=== PATIENT | female | born 1965 ===

== ENCOUNTER 2020-05-28 09:12 | Emergency (ER) | payer OTHER ==
[~2020-05-28] VITALS: Ht 160 cm; Wt 63.5 kg
[2020-05-28] MEDS ORDERED: LEVO-T88 MCG (09:33)
[2020-05-28] MEDS ORDERED: NORFLEX100MG PO (13:44)
[2020-05-28] MEDS ORDERED: KETO10TA2 PO (13:44)
== END 2020-05-28 13:56 | disposition home or self-care (01) ==
LOC: ER 09:12
DX: M54.2 Cervicalgia (principal); M54.5 Low back pain; V49.88XA Car occupant (driver) (passenger) injured in other specified transport accidents, initial encounter; Y93.89 Activity, other specified; Y92.488 Other paved roadways as the place of occurrence of the external cause